=== PATIENT | female | born 1975 | race African-American/Black ===

== ENCOUNTER 2017-07-02 05:09 | Inpatient (IN) ==
[2017-07-02] MEDS ORDERED: CLINDAMYCIN INJ 900 MG in PREMIX 1 EACH IV ONE (05:30)
[2017-07-02] MEDS ORDERED: CITRIC ACID/SODIUM CITRATE 30 ML UDCUP PO ONE (05:30)
[2017-07-02] MEDS ORDERED: OXYTOCIN/LR 20 UNIT/1,000 ML BAG IV ONE ×2 (06:09→09:29)
[2017-07-02 06:19] LABS: Basophils % 0.3 % (0.0-0.8); Eosinophils # 0.1 10*3/uL (0.0-0.87); Hematocrit 29.2 VOL% (35.7-47.0); Hemoglobin 9.5 GM/DL (12.0-16.0); Immature Granulocytes % 0.6 %; Immature Granulocytes Absolute 0.05 #; Lymphocytes # 2.7 10*3/uL (1.4-4.0); Mean Corpuscular HGB Conc 32.5 GM/DL (32-36); Mean Corpuscular Hemoglobin 28 PG (27-34); Mean Corpuscular Volume 85.6 FL (87-102); Mean Platelet Volume 10.2 FL (9.6-12.0); Monocytes # 0.4 10*3/uL (0.11-0.8); Monocytes % 5.3 % (1.7-12.7); Neutrophils # 4.6 10*3/uL (1.4-7.4); Neutrophils % 58.8 % (38.7-73.9); Platelet Count 285 T/CUMM (130-400); Red Blood Count 3.41 MC/CUMM (3.8-5.5); White Blood Count 7.8 T/CUMM (4-12)
[2017-07-02] MEDS ORDERED: FAMOTIDINE 20 MG/2 ML VIAL IV ONE (06:30)
[2017-07-02 06:35] LABS: Albumin 2.7 G/DL (3.4-5.0); Bilirubin,Total 0.7 MG/DL (0.2-1.0); Calcium 8.2 MG/DL (8.5-10.1); Osmolality,Calculated 277.4 MOS/KG (273-304); Potassium 3.5 MMOL/L (3.5-5.1); Total Protein 6.5 G/DL (6.4-8.3)
[2017-07-02] MEDS: LACTATED RINGERS 1,000 ML IV SCH ×2 (07:01→21:18)
[2017-07-02 07:10] LABS: Apearance,Urine Slightly Hazy (Clear); Bacteria,Urine Occasional /HPF (Few); Bilirubin,Urine Negative (Negative); Blood, Urine Small mg/dL (Negative); Glucose,Urine (UA) Negative (Negative); Ketones,Urine 20 mg/dL (Negative); Mucus,Urine Many /LPF (Occasional); Nitrite,Urine Negative (Negative); Protein,Urine 30 MG/DL; RBC,Urine 20 /HPF (0-4); Squamous Epithelial Cell,Urine Occasional /HPF (0-10); Urine Color Yellow (Yellow); Urine Specific Gravity 1.027 (1.001-1.035); WBC,Urine 3 /HPF (0-6)
[2017-07-02] MEDS ORDERED: CARBOPROST TROMETHAMINE 250 MCG/ML AMP IM ONE (08:19)
[2017-07-02] MEDS ORDERED: ONDANSETRON 4 MG/2 ML VIAL IV PRN (09:29)
[2017-07-02] MEDS ORDERED: WITCH HAZEL PADS 100/JAR TOP PRN (09:29)
[2017-07-02] MEDS ORDERED: ACETAMINOPHEN 325 MG TABLET PO PRN (09:29)
[2017-07-02] MEDS ORDERED: LANOLIN 50% CREAM 0.3 OZ TUBE TOP PRN (09:29)
[2017-07-02] MEDS ORDERED: DIPH/TET/ACEL PERT BOOSTER VACCINE 0.5 ML VIAL IM ONE (09:29)
[2017-07-02] MEDS ORDERED: HYDROCORTISONE 2.5% RECTAL CREAM 30 GM TUBE TOP PRN (09:29)
[2017-07-02] MEDS ORDERED: MEASLES/MUMPS/RUBELLA VACCINE 0.5 ML VIAL SUBCUT ONE (09:29)
[2017-07-02] MEDS ORDERED: RHO(D) IMMUNE GLOBULIN 300 MCG SYRINGE IM ONE (09:29)
[2017-07-02] MEDS ORDERED: BENZOCAINE 20%/MENTHOL 0.5% SPRAY 56 GM CAN TOP PRN (09:29)
[2017-07-02] MEDS ORDERED: BISACODYL 10 MG SUPP RECTAL PRN (09:29)
[2017-07-02] MEDS ORDERED: MEPERIDINE 25 MG/1 ML VIAL IV ONE (09:42)
[2017-07-02] MEDS ORDERED: PHENYLEPHRINE 1 MG/10 ML SYRINGE IV ONE (09:42)
[2017-07-02] MEDS ORDERED: fentaNYL 100 MCG/2 ML VIAL ONE (09:43)
[2017-07-02] MEDS ORDERED: PROPOFOL 200 MG/20 ML VIAL IV ONE (09:44)
[2017-07-02] MEDS ORDERED: LIDOCAINE 2% 20 ML VIAL ONE (09:44)
[2017-07-02] MEDS ORDERED: LACTATED RINGERS 1,000 ML IV SCH (10:30)
[2017-07-02] MEDS: HYDROmorphone 2 MG/1 ML VIAL IV PRN ×4 (11:27→19:44)
[2017-07-02] MEDS ORDERED: HYDROmorphone 2 MG/1 ML VIAL IV ONE (12:30)
[2017-07-02] MEDS ORDERED: hydrOXYzine HCL 25 MG/1 ML VIAL IM PRN (15:28)
[2017-07-02] MEDS: CLINDAMYCIN INJ 900 MG in PREMIX 1 EACH IV SCH (15:35)
[2017-07-02] MEDS: HydrOXYzine PAMOATE 25 MG CAPSULE PO PRN (17:04)
[2017-07-02] MEDS: DOCUSATE SODIUM 100 MG CAPSULE PO SCH (21:09)
[2017-07-02] MEDS: LABETALOL 200 MG TABLET PO SCH (21:09)
[2017-07-02] MEDS: oxyCODONE/ACETAMINOPHEN 5-325 MG TABLET PO PRN (22:11)
[2017-07-03] MEDS: CLINDAMYCIN INJ 900 MG in PREMIX 1 EACH IV SCH ×2 (00:53→09:20)
[2017-07-03] MEDS: SIMETHICONE CHEW 80 MG TABLET PO PRN ×3 (02:36→18:13)
[2017-07-03] MEDS: IBUPROFEN 800 MG TABLET PO PRN ×2 (02:36→18:13)
[2017-07-03] MEDS: oxyCODONE/ACETAMINOPHEN 5-325 MG TABLET PO PRN ×2 (03:40→13:16)
[2017-07-03] MEDS: LACTATED RINGERS 1,000 ML IV SCH (05:04)
[2017-07-03 05:27] LABS: Basophils % 0.1 % (0.0-0.8); Eosinophils # 0.1 10*3/uL (0.0-0.87); Eosinophils % 0.9 % (0.00-10.9); Hematocrit 27.9 VOL% (35.7-47.0); Hemoglobin 9.5 GM/DL (12.0-16.0); Immature Granulocytes % 0.5 %; Immature Granulocytes Absolute 0.05 #; Lymphocytes # 2.1 10*3/uL (1.4-4.0); Lymphocytes % 19.2 % (21.3-54.2); Mean Corpuscular HGB Conc 34.1 GM/DL (32-36); Mean Corpuscular Hemoglobin 28 PG (27-34); Mean Corpuscular Volume 82.8 FL (87-102); Mean Platelet Volume 10.1 FL (9.6-12.0); Monocytes # 0.6 10*3/uL (0.11-0.8); Monocytes % 5.2 % (1.7-12.7); Neutrophils % 74.1 % (38.7-73.9); Platelet Count 252 T/CUMM (130-400); Red Blood Count 3.37 MC/CUMM (3.8-5.5); White Blood Count 10.8 T/CUMM (4-12)
[2017-07-03] MEDS: HYDROmorphone 2 MG/1 ML VIAL IV PRN (05:47)
[2017-07-03] MEDS: HydrOXYzine PAMOATE 25 MG CAPSULE PO PRN (07:13)
[2017-07-03] MEDS ORDERED: METOCLOPRAMIDE 10 MG/2 ML VIAL IV SCH (08:00)
[2017-07-03] MEDS ORDERED: HYDROCORTISONE 1% CREAM 28 GM TUBE TOP PRN (08:39)
[2017-07-03] MEDS: LABETALOL 200 MG TABLET PO SCH ×2 (09:13→20:44)
[2017-07-03] MEDS: MULTIVITAMIN (PRENATAL) TABLET PO SCH (09:13)
[2017-07-03] MEDS: MAGNESIUM HYDROXIDE SUSP 30 ML UDCUP PO PRN (09:14)
[2017-07-03] MEDS: DOCUSATE SODIUM 100 MG CAPSULE PO SCH ×2 (09:14→20:44)
[2017-07-03] MEDS: FERROUS SULFATE ER 140 MG TABLET PO SCH (09:14)
[2017-07-03] MEDS ORDERED: RHO(D) IMMUNE GLOBULIN 300 MCG SYRINGE IM ONE (18:27)
[2017-07-03] MEDS: METOCLOPRAMIDE 10 MG TABLET PO SCH (23:42)
[2017-07-04] MEDS: METOCLOPRAMIDE 10 MG TABLET PO SCH ×3 (05:51→18:00)
[2017-07-04] MEDS: IBUPROFEN 800 MG TABLET PO PRN (05:51)
[2017-07-04] MEDS: MAGNESIUM HYDROXIDE SUSP 30 ML UDCUP PO PRN (09:29)
[2017-07-04] MEDS: DOCUSATE SODIUM 100 MG CAPSULE PO SCH ×2 (09:29→20:13)
[2017-07-04] MEDS: LABETALOL 200 MG TABLET PO SCH ×2 (09:29→20:13)
[2017-07-04] MEDS: MULTIVITAMIN (PRENATAL) TABLET PO SCH (09:29)
[2017-07-04] MEDS: FERROUS SULFATE ER 140 MG TABLET PO SCH (09:29)
[2017-07-04] MEDS: SIMETHICONE CHEW 80 MG TABLET PO PRN (09:29)
[2017-07-04] MEDS: oxyCODONE/ACETAMINOPHEN 5-325 MG TABLET PO PRN (20:13)
[2017-07-05] MEDS: METOCLOPRAMIDE 10 MG TABLET PO SCH ×2 (00:31→05:24)
[2017-07-05] MEDS: MAGNESIUM HYDROXIDE SUSP 30 ML UDCUP PO PRN ×2 (02:07→09:19)
[2017-07-05] MEDS: oxyCODONE/ACETAMINOPHEN 5-325 MG TABLET PO PRN ×2 (04:02→04:06)
[2017-07-05 08:44] VITALS: BP 143/86
[2017-07-05] MEDS: DOCUSATE SODIUM 100 MG CAPSULE PO SCH (09:19)
[2017-07-05] MEDS: LABETALOL 200 MG TABLET PO SCH (09:21)
[2017-07-05] MEDS: MULTIVITAMIN (PRENATAL) TABLET PO SCH (09:21)
[2017-07-05] MEDS: FERROUS SULFATE ER 140 MG TABLET PO SCH (09:21)
== END 2017-07-05 11:55 | disposition home or self-care (01) | DRG 540 ==
LOC: N.LD 05:09 → N.OB 13:23
PROVIDERS: ADMIT Specialist; ATTEND Specialist